=== PATIENT | female | born 1955 ===

== ENCOUNTER 2024-01-10 05:25 | Day surgery (SDC) | payer OTHER ==
[2023-12-31 12:12] VITALS: BP 141/81
[~2024-01-10] VITALS: Ht 167.6 cm; Wt 77.1 kg
[~2024-01-10 05:25] MED LIST: COZAAR25 MG PO; HORIZANT300 MG PO; PEPCID AC20 MG; SYNTHROID88 MCG PO
[2024-01-10] MEDS ORDERED: CHLORHEXIDINE GLUCONATE 120 ML BOTTLE TOP ONE (08:30)
[2024-01-10] MEDS ORDERED: POVIDONE-IODINE 118 ML BOTT TOP ONE (08:30)
[2024-01-10] MEDS ORDERED: METRONIDAZOLE/SODIUM CHLORIDE 500 MG/100 ML PIGGYBACK IV SCH (08:30)
== END 2024-01-10 13:10 | disposition home or self-care (01) ==
LOC: CIR.AMB 05:25
PROVIDERS: ATTEND Obstetrics & Gynecology
DX: N84.0 Polyp of corpus uteri (principal); D25.0 Submucous leiomyoma of uterus; Z88.0 Allergy status to penicillin; Z91.013 Allergy to seafood